=== PATIENT | male | born 1955 | race Caucasian/White ===

== ENCOUNTER 2018-02-19 19:28 | Emergency (ER) | payer OTHER ==
[~2018-02-19] VITALS: Ht 175.3 cm; Wt 150.1 kg
[2018-02-19 20:54] LABS: HEMATOCRIT 34.6 % (38.0-50.0); HEMOGLOBIN 11.7 G/DL (12.5-16.6); MCH 27.1 PG (29.0-34.0); MCHC 33.8 G/DL (30.0-36.0); MCV 80.3 FL (86-99); PLATELET COUNT 352 K/uL (156-360); RBC DIS.WIDTH-CV 13.2 % (11.8-14.6); RBC DIS.WIDTH-SD 38.6 % (39-53); RED BLOOD COUNT 4.31 M/uL (4.00-5.50); WHITE BLOOD COUNT 10.4 K/uL (4.1-10.2)
[2018-02-19 21:04] LABS: ALBUMIN 2.5 g/dL (3.2-4.8); CHLORIDE 102 mEq/L (99-109); POTASSIUM 3.5 mEq/L (3.7-5.4)
[2018-02-19 21:05] LABS: SODIUM 137 mEq/L (136-147)
[2018-02-19 21:07] LABS: GLUCOSE 221 mg/dL (70-99); TOTAL PROTEIN 6.4 g/dL (6.4-8.3)
[2018-02-19 21:09] LABS: TOTAL BILIRUBIN 0.4 mg/dL (0.0-1.0)
[2018-02-19 21:10] LABS: ALKALINE PHOSPHATASE 181 IU/L (3-129); CREATININE 1.5 mg/dL (0.6-1.3); GFR ESTIMATE (CALCULATED) 50 mL/min/ (58.99-99999)
[2018-02-19 21:12] LABS: AST (GOT) 25 IU/L (2-34); UREA NITROGEN (BUN) 30 mg/dL (9-23)
[2018-02-19 21:13] LABS: ALT (GPT) 17 IU/L (3-49)
[2018-02-19] MEDS ORDERED: CEPHALEXIN500 MG PO (22:00)
[2018-02-19 22:46] VITALS: BP 188/112
== END 2018-02-19 22:55 | disposition home or self-care (01) ==
LOC: EME 19:28
PROVIDERS: Emergency Medicine
DX: L03.116 Cellulitis of left lower limb (principal); I10 Essential (primary) hypertension; E78.5 Hyperlipidemia, unspecified; Z87.891 Personal history of nicotine dependence; M79.89 Other specified soft tissue disorders
CPT/HCPCS: 80053; 84550; 85027; 93926; 93971; 99281; 99284

== ENCOUNTER 2018-05-18 10:21 | Inpatient (IN) | payer OTHER ==
[~2018-05-18] VITALS: Ht 175.3 cm; Wt 146.0 kg
[~2018-05-18 10:21] MED LIST: CEPHALEXIN500 MG PO
[2018-05-18 11:38] LABS: BASOPHIL (%) 0.8 % (0-1); BASOPHIL COUNT 0.1 K/uL (0-0.1); EOSINOPHIL (%) 1.9 % (0-5); EOSINOPHIL COUNT 0.3 K/uL (0-0.3); HEMATOCRIT 29.9 % (38.0-50.0); HEMOGLOBIN 9.9 G/DL (12.5-16.6); IMMATURE GRANULOCYTE (%) 2.1 % (0.0-0.7); LYMPHOCYTE (%) 13.5 % (15-42); LYMPHOCYTE COUNT 2.3 K/uL (1.0-2.8); MCH 26.3 PG (29.0-34.0); MCHC 33.1 G/DL (30.0-36.0); MCV 79.3 FL (86-99); MONOCYTE (%) 6.4 % (3-12); MONOCYTE COUNT 1.1 K/uL (0-0.8); NEUTROPHIL (%) 75.3 % (45-76); NEUTROPHIL COUNT 12.9 K/uL (1.8-6.4); PLATELET COUNT 428 K/uL (156-360); RBC DIS.WIDTH-CV 14.6 % (11.8-14.6); RBC DIS.WIDTH-SD 42.3 % (39-53); RED BLOOD COUNT 3.77 M/uL (4.00-5.50); WHITE BLOOD COUNT 17.1 K/uL (4.1-10.2)
[2018-05-18 11:51] LABS: CHLORIDE 101 mEq/L (99-109); POTASSIUM 3.5 mEq/L (3.7-5.4); SODIUM 138 mEq/L (136-147)
[2018-05-18 11:53] LABS: GLUCOSE 190 mg/dL (70-99)
[2018-05-18 11:57] LABS: CREATININE 1.7 mg/dL (0.6-1.3); GFR ESTIMATE (CALCULATED) 43 mL/min/ (58.99-99999)
[2018-05-18 11:58] LABS: UREA NITROGEN (BUN) 26 mg/dL (9-23)
[2018-05-18 12:50] LABS: ERTH.SED.RATE 113 MM/HR (0-20)
[2018-05-18 13:00] LABS: C-REACTIVE PROTEIN 192.2 MG/L (0-10)
[2018-05-18] MEDS ORDERED: AUGMENTIN875 MG PO (13:19)
[2018-05-18] MEDS ORDERED: CATAPRES0.2 MG PO (13:20)
[2018-05-18] MEDS ORDERED: AMLODIPINE BESYL5 MG PO (13:20)
[2018-05-18] MEDS ORDERED: LISINOPRIL40 MG PO (13:21)
[2018-05-18] MEDS ORDERED: GLUCOTROL XL10 MG PO (13:21)
[2018-05-18] MEDS ORDERED: LANTUS 3 M100 UNITS1 SC (13:23)
[2018-05-18] MEDS ORDERED: NOVOLOG PE100 UNITS/ SC (13:24)
[2018-05-18] MEDS ORDERED: VITAMIN D-32000 UNI2 PO (13:24)
[2018-05-18] MEDS ORDERED: LO-DOSE ASPIRIN81 M1 PO (13:24)
[2018-05-18] MEDS ORDERED: VITAMIN B122500 MC1 PO (13:25)
[2018-05-18 19:38] VITALS: BP 181/78
[2018-05-18] MEDS ORDERED: AUGMENTIN125 MG/51 PO (21:00)
[2018-05-18 23:13] VITALS: BP 170/75
[2018-05-19 03:44] VITALS: BP 192/85
[2018-05-19 04:52] VITALS: BP 166/88
[2018-05-19 05:32] LABS: BASOPHIL (%) 0.9 % (0-1); BASOPHIL COUNT 0.1 K/uL (0-0.1); EOSINOPHIL (%) 2.6 % (0-5); EOSINOPHIL COUNT 0.4 K/uL (0-0.3); HEMATOCRIT 29.1 % (38.0-50.0); HEMOGLOBIN 9.5 G/DL (12.5-16.6); IMMATURE GRANULOCYTE (%) 2.2 % (0.0-0.7); LYMPHOCYTE (%) 18.8 % (15-42); LYMPHOCYTE COUNT 2.6 K/uL (1.0-2.8); MCH 25.8 PG (29.0-34.0); MCHC 32.6 G/DL (30.0-36.0); MCV 79.1 FL (86-99); MONOCYTE (%) 7.6 % (3-12); MONOCYTE COUNT 1.1 K/uL (0-0.8); NEUTROPHIL (%) 67.9 % (45-76); NEUTROPHIL COUNT 9.5 K/uL (1.8-6.4); PLATELET COUNT 428 K/uL (156-360); RBC DIS.WIDTH-CV 14.6 % (11.8-14.6); RBC DIS.WIDTH-SD 42.6 % (39-53); RED BLOOD COUNT 3.68 M/uL (4.00-5.50)
[2018-05-19 06:17] LABS: ALBUMIN 1.7 G/DL (3.2-4.8); ALKALINE PHOSPHATASE 173 IU/L (3-129); ALT (GPT) 11 IU/L (3-49); AST (GOT) 15 IU/L (2-34); CHLORIDE 103 MEQ/L (99-109); CREATININE 1.9 MG/DL (0.6-1.3); GFR ESTIMATE (CALCULATED) 38 mL/min/ (58.99-99999); GLUCOSE 123 mg/dL (70-99); POTASSIUM 3.6 MEQ/L (3.7-5.4); SODIUM 137 MEQ/L (136-147); TOTAL BILIRUBIN 0.5 MG/DL (0.0-1.0); TOTAL PROTEIN 4.7 G/DL (6.4-8.3); UREA NITROGEN (BUN) 29 mg/dL (9-23)
[2018-05-19 07:41] VITALS: BP 137/88
[2018-05-19 12:44] VITALS: BP 172/81
[2018-05-19 19:32] VITALS: BP 140/68
[2018-05-19 23:53] VITALS: BP 140/56
[2018-05-20 07:45] VITALS: BP 149/102
[2018-05-20 11:22] VITALS: BP 180/81
[2018-05-20 15:33] VITALS: BP 178/93
[2018-05-20 21:00] VITALS: BP 132/90
[2018-05-21] VITALS: BP 140/76
[2018-05-21 05:40] LABS: HEMATOCRIT 26.1 % (38.0-50.0); HEMOGLOBIN 8.3 G/DL (12.5-16.6); MCH 25.9 PG (29.0-34.0); MCHC 31.8 G/DL (30.0-36.0); MCV 81.3 FL (86-99); PLATELET COUNT 386 K/uL (156-360); RBC DIS.WIDTH-CV 14.8 % (11.8-14.6); RBC DIS.WIDTH-SD 43.9 % (39-53); RED BLOOD COUNT 3.21 M/uL (4.00-5.50); WHITE BLOOD COUNT 10.1 K/uL (4.1-10.2)
[2018-05-21 06:53] VITALS: BP 166/81
[2018-05-21 15:06] VITALS: BP 153/70
[2018-05-21 21:09] VITALS: BP 167/72
[2018-05-22 06:26] LABS: BASOPHIL (%) 1.2 % (0-1); BASOPHIL COUNT 0.1 K/uL (0-0.1); EOSINOPHIL (%) 4.5 % (0-5); EOSINOPHIL COUNT 0.4 K/uL (0-0.3); HEMATOCRIT 26.9 % (38.0-50.0); HEMOGLOBIN 8.4 G/DL (12.5-16.6); IMMATURE GRANULOCYTE (%) 1.2 % (0.0-0.7); LYMPHOCYTE (%) 20.8 % (15-42); MCH 25.3 PG (29.0-34.0); MCHC 31.2 G/DL (30.0-36.0); MONOCYTE (%) 8.3 % (3-12); MONOCYTE COUNT 0.8 K/uL (0-0.8); PLATELET COUNT 382 K/uL (156-360); RBC DIS.WIDTH-CV 14.5 % (11.8-14.6); RBC DIS.WIDTH-SD 43.1 % (39-53); RED BLOOD COUNT 3.32 M/uL (4.00-5.50); WHITE BLOOD COUNT 9.4 K/uL (4.1-10.2)
[2018-05-22 06:48] LABS: CHLORIDE 107 MEQ/L (99-109); CREATININE 1.8 MG/DL (0.6-1.3); GFR ESTIMATE (CALCULATED) 41 mL/min/ (58.99-99999); GLUCOSE 92 mg/dL (70-99); POTASSIUM 3.9 MEQ/L (3.7-5.4); SODIUM 139 MEQ/L (136-147); UREA NITROGEN (BUN) 30 mg/dL (9-23)
[2018-05-22 07:26] VITALS: BP 140/82
[2018-05-22 14:55] VITALS: BP 174/80
[2018-05-23 02:04] VITALS: BP 161/73
[2018-05-23 07:23] VITALS: BP 146/82
[2018-05-23] MEDS ORDERED: VANCOMYCIN HCL1 GM IV (12:58)
[2018-05-23] MEDS ORDERED: CEFEPIME HCL2 GM IV (12:58)
[2018-05-23] MEDS ORDERED: AMLODIPINE BESY10 MG PO (12:59)
[2018-05-23 15:06] VITALS: BP 158/78
== END 2018-05-23 17:27 | disposition home health service (06) | DRG 629 ==
LOC: EME 10:21 → EDOF 14:11 → 5SOUTH 14:11 → ENRESERV 14:14 → 5SOUTH 15:27
PROVIDERS: Emergency Medicine; Hospitalist; Internal Medicine; Podiatrist Foot & Ankle Surgery
DX: E11.69 Type 2 diabetes mellitus with other specified complication (principal); M86.9 Osteomyelitis, unspecified; L03.116 Cellulitis of left lower limb; B96.5 Pseudomonas (aeruginosa) (mallei) (pseudomallei) as the cause of diseases classified elsewhere; B95.62 Methicillin resistant Staphylococcus aureus infection as the cause of diseases classified elsewhere; B95.1 Streptococcus, group B, as the cause of diseases classified elsewhere; E11.621 Type 2 diabetes mellitus with foot ulcer; L97.424 Non-pressure chronic ulcer of left heel and midfoot with necrosis of bone; E11.610 Type 2 diabetes mellitus with diabetic neuropathic arthropathy; E11.51 Type 2 diabetes mellitus with diabetic peripheral angiopathy without gangrene; E11.42 Type 2 diabetes mellitus with diabetic polyneuropathy; I12.9 Hypertensive chronic kidney disease with stage 1 through stage 4 chronic kidney disease, or unspecified chronic kidney disease; N18.3 Chronic kidney disease, stage 3 (moderate); E11.22 Type 2 diabetes mellitus with diabetic chronic kidney disease; I10 Essential (primary) hypertension; M10.9 Gout, unspecified; E78.5 Hyperlipidemia, unspecified; D64.9 Anemia, unspecified; E66.9 Obesity, unspecified; I87.2 Venous insufficiency (chronic) (peripheral); Z87.891 Personal history of nicotine dependence; Z95.828 Presence of other vascular implants and grafts; Z79.82 Long term (current) use of aspirin; Z79.4 Long term (current) use of insulin; Z89.421 Acquired absence of other right toe(s); Z91.19 Patient's noncompliance with other medical treatment and regimen; Z68.42 Body mass index [BMI] 45.0-49.9, adult
CPT/HCPCS: 73630; 73700; 76937; 80048; 80053; 80202; 82043; 82570; 82948; 83036; 83605; 85025; 85025 91; 85027; 85651; 86140; 87040; 87070; 87075; 87077; 87147; 87186; 87205; 88305; 93005; 99281; 99285; J0692; J0696; J1644; J1815; J2250; J2405; J2543; J3010; J3370; J3480; J7050; S0020